=== PATIENT | female | born 1980 ===

== ENCOUNTER 2017-08-20 09:34 | Outpatient (CLI) | payer OTHER | END 2017-08-20 09:44 | disposition home or self-care (01) | LOC: LAB 09:34 | DX: N92.4 Excessive bleeding in the premenopausal period (principal); N30.01 Acute cystitis with hematuria; E88.81 Metabolic syndrome and other insulin resistance; E07.89 Other specified disorders of thyroid; E55.9 Vitamin D deficiency, unspecified; N91.2 Amenorrhea, unspecified ==

== ENCOUNTER 2020-10-30 09:02 | Emergency (ER) | payer OTHER ==
[~2020-10-30] VITALS: Ht 157.5 cm; Wt 49.9 kg
== END 2020-10-30 10:18 ==
LOC: ER 09:02
DX: T19.2XXA Foreign body in vulva and vagina, initial encounter (principal); N89.8 Other specified noninflammatory disorders of vagina; X58.XXXA Exposure to other specified factors, initial encounter; Y93.89 Activity, other specified; Y92.89 Other specified places as the place of occurrence of the external cause; Y99.8 Other external cause status

== ENCOUNTER 2025-07-28 11:14 | Outpatient (CLI) | payer OTHER | END 2025-07-28 11:23 | disposition home or self-care (01) | LOC: RAD 11:14 | DX: Z01.810 Encounter for preprocedural cardiovascular examination (principal) ==